=== PATIENT | female | born 1945 | race African-American/Black ===

== ENCOUNTER 2017-07-12 09:44 | Day surgery (SDC) | payer OTHER ==
[2017-07-11 12:59] VITALS: BMI 40.2
[2017-07-12] MEDS ORDERED: ISOSULFAN BLUE 10 MG/ML VIAL SQ ONE (14:10)
[2017-07-12] MEDS ORDERED: LIDOCAINE HCL 1%, 10 MG/ML (20ML VIAL) ONE ×2 (14:34→15:54)
[2017-07-12] MEDS ORDERED: CLINDAMYCIN 600 MG PREMIX BAG IVPB ONE (14:40)
[2017-07-12] MEDS ORDERED: PROPOFOL 20 ML ONE ×8 (16:06→17:33)
[2017-07-12] MEDS ORDERED: ceFAZolin SODIUM 1 GM VIAL IVPB ONE (16:37)
[2017-07-12] MEDS ORDERED: ceFAZolin SODIUM 1 GM VIAL ONE (16:37)
[2017-07-12] MEDS ORDERED: DEXAMETHASONE SOD PHOSPHATE 4 MG/1 ML VIAL ONE (16:46)
[2017-07-12] MEDS ORDERED: ONDANSETRON 4 MG/2 ML VIAL ONE (16:46)
[2017-07-12] MEDS ORDERED: ACETAMINOPHEN 325 MG TABLET (FP) PO PRN (18:13)
[2017-07-12] MEDS ORDERED: ONDANSETRON 4 MG/2 ML VIAL IVPUSH PRN (18:13)
[2017-07-12] MEDS ORDERED: LABETALOL HCL 5 MG/1 ML (100MG/20 ML VIAL) IVPUSH ONE ×3 (19:15→20:03)
[2017-07-12 23:34] VITALS: PULSE 84; TEMP 98.1
[2017-07-12 23:37] VITALS: BP 143/68
--- NOTE | 2017-07-13 19:23 | OP ---
DATE OF OPERATION: 07/12/2017 PREOPERATIVE DIAGNOSIS: Left breast cancer. POSTOPERATIVE DIAGNOSIS: Left breast cancer. PROCEDURE: Left breast lumpectomy and sentinel lymph node biopsy. SURGEON: Maria Antonia Gonzalez MD ANESTHESIA: General. ESTIMATED BLOOD LOSS: 100 mL. DRAINS: None. COMPLICATIONS: None. DISPOSITION: Stable at the end of procedure. INDICATION FOR PROCEDURE: Patient presented with a palpable mass in the upper outer left breast. This was abnormal on mammogram and ultrasound. She had a needle biopsy that showed an invasive carcinoma. Recommendation was a lumpectomy and a central node biopsy. The procedure was discussed with all of the questions answered. PROCEDURE IN DETAIL: The patient was brought to [facility] in [place] and first taken to nuclear medicine where a technetium and sulfur colloid was injected by the radiologist in the left breast 2 o'clock periareolar area as a dermal injection. She was then brought up to the operating room. After induction of general anesthesia and IV antibiotics, the left breast and axilla were prepped. Then 5 mL of Isosulfan blue dye was injected into the left subaerolar plexus. The breast was massaged for 5 minutes. The breast and axilla were reprepped and draped, and a 4-cm incision was made in the left axilla and carried down through the clavipectoral fascia to identify the sentinel node number 1, which was blue but not hot. There was a 2nd sentinel node as well that was hot but not blue and a 3rd lymph node that felt firm when I took it as a non-sentinel lymph node left axilla. There was no other blue dye radioactivity or pathologic feeling lymph nodes in the left axilla; therefore, once hemostasis was assured, the left breast lumpectomy was performed. A curvilinear incision was made in the upper outer part of the left breast overlying the palpable mass, and an en bloc lumpectomy was performed tagged with a long stitch lateral, short stitch superior. I felt posteriorly I was close superior, inferiorly, medially as well as posteriorly. Therefore, I took new additional margins with a new posterior margin stitch marking the old margin, new inferior margin with a stitch marking the old margin, new medial margin with stitch marking the old margin, and the new superior margin with a stitch marking the old margin. The specimen was all sent to pathology for permanent section. Hemostasis was assured with electrocautery. The parenchyma was approximated with interrupted 2-0 Vicryl, skin approximated with interrupted 3-0 Vicryl and running 4-0 Prolene. A sterile dressing with Tegaderm and 4x4 was applied. She tolerated the procedure well, was extubated on the operating room table, and taken to recovery in good condition. Lizy [id number]
--- NOTE | 2017-07-17 15:43 | PATH ---
Surgical Pathology Report Patient Name: ROSALIO DOWD [facility]. Rec. #: [id number] /Age/Gender: 1945 (Age: 72) / F Account: [id number] Location: [facility] SURGICAL Taken: 07/12/2017 Received: 07/15/2017 Reported: 07/17/2017 Physicians: Maria Antonia Gonzalez M.D. Specimen(s) Received A: LEFT AXILLARY SENTINEL LYMPH NODE #1 B: LEFT AXILLARY NON SENTINEL LYMPH NODE C: LEFT AXILLARY SENTINEL LYMPH NODE #2 D: LEFT BREAST LUMPECTOMY E: LEFT BREAST NEW POSTERIOR MARGIN F: LEFT BREAST NEW INFERIOR MARGIN G: LEFT BREAST NEW MEDIAL MARGIN H: LEFT BREAST NEW SUPERIOR MARGIN Clinical History Breast cancer Final Diagnosis A. SENTINEL LYMPH NODES #1, LEFT AXILLARY, BIOPSY: TWO LYMPH NODES NEGATIVE FOR METASTATIC CARCINOMA BY H&E STAIN (0/2). B. NON-SENTINEL LYMPH NODE, LEFT AXILLARY, LYMPHADENECTOMY: THREE LYMPH NODES NEGATIVE FOR METASTATIC CARCINOMA BY H&E STAIN (0/3). C. SENTINEL LYMPH NODE #2, LEFT AXILLARY, BIOPSY: ONE LYMPH NODE NEGATIVE FOR METASTATIC CARCINOMA BY H&E STAIN (0/1). D. BREAST, LEFT, LUMPECTOMY: SOLID PAPILLARY CARCINOMA WITH INVASION, NUCLEAR GRADE 2 (SEE COMMENT). CARCINOMA FOCALLY AND SIZE: SINGLE FOCUS, 3.3 CM (MICROSCOPIC MEASUREMENT). SURGICAL RESECTION MARGINS: CARCINOMA IS LESS THAN 1 MM FROM THE MEDIAL ASPECT OF THIS SPECIMEN; FINAL RESECTION MARGINS ARE NEGATIVE FOR CARCINOMA (REFER TO PARTS E-H FOR THE FINAL RESECTION MARGINS). LYMPHOVASCULAR INVASION: NOT IDENTIFIED. PERINEURAL INVASION: NOT IDENTIFIED. SURROUNDING BREAST TISSUE: FOCI OF STROMAL FIBROSIS. PATHOLOGIC STAGING: pT2 pN0 (ALSO REFER TO CHECKLIST BELOW). RECEPTOR STUDIES: REFER TO CHECKLIST BELOW. Comment: Immunohistochemical stains for SMM-HC and p63 performed and interpreted at [facility] on block D2 show no residual myoepithelial cells; e-cadherin stain is positive. E. BREAST, LEFT NEW POSTERIOR MARGIN, EXCISION: BENIGN FATTY BREAST TISSUE. CALCIFICATIONS IN VASCULAR DE JESUS. NEGATIVE FOR CARCINOMA. F. BREAST, LEFT, NEW INFERIOR MARGIN, EXCISION: BENIGN FATTY TISSUE. NEGATIVE FOR CARCINOMA. G. BREAST, LEFT, NEW MEDIAL MARGIN, EXCISION: BENIGN FATTY BREAST TISSUE AND SKELETAL MUSCLE. NEGATIVE FOR CARCINOMA. H. BREAST, LEFT, NEW SUPERIOR MARGIN, EXCISION: BENIGN FATTY TISSUE. CALCIFICATIONS IN VASCULAR DE JESUS. NEGATIVE FOR CARCINOMA. Comments Breast Invasive Carcinoma: Surgical Pathology Cancer Case Summary Based on AJCC/UICC TNM, 7th edition Procedure _x_ Excision without image-guided localization Lymph Node Sampling _x_ [place] and non-sentinel lymph nodes Specimen Laterality _x_ Left Tumor Size: Size of Largest Invasive Carcinoma Greatest dimension of largest focus of invasion over 1 mm: 3.3 cm (33 mm) Tumor Focality _x_ Single focus of invasive carcinoma Macroscopic and Microscopic Extent of Tumor Skin _x_ No skin present Nipple _x_ Not applicable (excisions less than total mastectomy) Skeletal Muscle _x_ Carcinoma does not invade skeletal muscle Ductal Carcinoma In Situ (DCIS) _x_ No DCIS is present Histologic Type of Invasive Carcinoma: _x_ Solid papillary carcinoma with invasion Histologic Grade: (Maximilian Histologic Score) Tubular Differentiation _x_ Score 3 Nuclear Pleomorphism _x_ Score 2 Mitotic Rate _x_ Score 1 Overall Grade _x_ Score cannot be determined (special type, solid papillary carcinoma) Margins _x_ Margins uninvolved by invasive carcinoma Distance from closest margin: >1.0 cm Specify margin: lateral Lymph-Vascular Invasion _x_ Not identified Lymph Nodes Total number of lymph nodes examined (sentinel and nonsentinel): 6 Number of sentinel lymph nodes examined: 3 Number of lymph nodes with macrometastases (> 2 mm): 0 Number of lymph nodes with micrometastases (>0.2 mm to 2 mm and/or >200cells):0 Number of lymph nodes with isolated tumor cells (=0.2 mm and =200 cells): 0 Size of largest metastatic deposit (if present): n/a Extranodal Extension _x_ Not applicable Pathologic Staging (pTNM) Primary Tumor (Invasive Carcinoma): pT2 Regional Lymph Nodes (pN): pN0 Distant Metastasis (pM): not applicable Biomarker Studies Results of ER and [place] studies performed on this specimen block D2 at [facility] are as follows: ER (clone [id number] mouse monoclonal antibody by [employer]): >95% nuclear staining with strong to moderate intensity (Positive). NY (clone16 mouse monoclonal antibody by [employer]): >95% nuclear staining with strong intensity (Positive). Results of Her2 (IHC) & Ki-67 studies performed on this specimen (block #D1 ) at [place], [place] ([id number]) are as follows: Her2 IHC (EP3 from [employer], formerly known as [id number], using [employer] Polymer Refine detection kit): 0 (Negative) Ki67: 20-25% (Intermediate proliferation index) Formalin fixation time (approximately 74 hrs) exceeds current ASCO/CAP recommendations for ER,[place] & Her2 testing (6-72 hrs). Negative results must be interpreted with caution as false negatives may occur. Cold ischemic time is within recommended guidelines. Electronically Signed Harley Husain M.D. Gross Description A. Received in formalin labeled "left axillary sentinel lymph node #1" are 2 pires, irregular lymph nodes with attached fat measuring 0.9 x 0.8 x 0.4 cm and 1.5 x 1.1 x 1.0 cm. The specimens are sectioned and entirely submitted in 5 cassettes as follows: 1-one bisected lymph node; 2-5-one quadrasected lymph node. B. Received in formalin labeled "left axillary non-sentinel lymph node" are 3 pires, irregular lymph nodes with attached fat ranging from 0.8 x 0.4 x 0.4 cm to 1.7 x 1.2 x 1.0 cm. The specimens are sectioned and entirely submitted in 6 cassettes as follows: 1-2-one bisected lymph node each; 3-6-one quadrasected lymph node. C. Received in formalin labeled "left axillary sentinel lymph node #2" is a 1.9 x 1.1 x 0.6 cm pires, irregular lymph node with attached fat. The specimen is bisected and entirely submitted in 2 cassettes. D. Received in formalin, labeled "left breast lumpectomy" is a 7.0 x 5.6 x 3.2 cm pires-yellow, irregular, portion of fibroadipose tissue with a short suture marking the superior aspect and a long suture marking the lateral aspect of the specimen, per the surgeon. There is no needle localization wire present. There is no skin or nipple present. The specimen is inked as follows: Superior blue; inferior green; anterior and lateral red; medial yellow; deep black. The specimen is serially sectioned from anterior to deep. Sectioning reveals a 3.3 x 3.0 x 2.2 cm pires, indurated, well circumscribed mass abutting the medial, superior and inferior margins. The remaining margins appear clear of the mass. Morphologist sections are submitted in 6 cassettes as follows: 1-2-one full face bisected section of mass (cassette 1 displays superior, inferior and medial margins; cassette 2 displays superior and inferior margins); 3-additional mass with superior, inferior and medial margins; 4-lateral margin; 5-anterior margin; 6-deep margin. Time to fixation: <1h Total formalin fixation time: ~74h E. Received in formalin labeled "left breast new posterior margin" is a 6.0 x 3.8 x 1.7 cm irregular portion of fibroadipose tissue with a suture marking the old margin, per the surgeon. The new margin is inked blue and the specimen is serially sectioned. The specimen is entirely and sequentially submitted in 13 cassettes. F. Received in formalin labeled "left breast new inferior margin" and has a 4.7 x 3.0 x 1.3 cm irregular portion of fibroadipose tissue with a suture marking the old margin, per the surgeon. The new margin is inked blue and the specimen is serially sectioned. The specimen is entirely and sequentially submitted in 9 cassettes. G. Received in formalin labeled "left breast new medial margin" is a 3.5 x 1.6 x 1.5 cm irregular portion of fibroadipose tissue with a suture marking the old margin, per the surgeon. The new margin is inked blue and the specimen is serially sectioned. The specimen is entirely submitted in 4 cassettes. H. Received in formalin labeled "left breast new superior margin" is a 3.8 x 3.0 x 1.0 cm irregular portion of fibroadipose tissue with a suture marking the old margin, per the surgeon. The new margin is inked blue and the specimen is serially sectioned. The specimen is entirely submitted in 4 cassettes. 07/15/2017 [facility]07/15/2017
== END 2017-07-12 21:30 | disposition home or self-care (01) ==
LOC: JASU-SURG 09:44 → J6S 19:45 → JASU-SURG 21:30
PROVIDERS: ATTEND Surgery
PROC: C71L1ZZ Planar Nuclear Medicine Imaging of Upper Chest Lymphatics using Technetium 99m (Tc-99m) (ICD-10-PCS; 2017-07-12)
PROC: 0HBU0ZZ Excision of Left Breast, Open Approach (ICD-10-PCS; principal; 2017-07-12 14:00)
PROC: 07B60ZX Excision of Left Axillary Lymphatic, Open Approach, Diagnostic (ICD-10-PCS; 2017-07-12 14:00)
DX: C50.912 Malignant neoplasm of unspecified site of left female breast (principal)
CPT/HCPCS: 88307-TC; 88341-TC; 88342-TC; 94760; A9541